=== PATIENT | female | born 1985 | race Caucasian/White ===

== ENCOUNTER 2017-12-08 16:33 | Inpatient (IN) | END 2017-12-15 20:15 | disposition home or self-care (01) | DRG 699 ==

== ENCOUNTER 2017-12-20 13:01 | Emergency (ER) | END 2017-12-20 13:36 | disposition home or self-care (01) ==

== ENCOUNTER 2018-01-03 12:10 | Emergency (ER) | END 2018-01-03 15:01 | disposition home or self-care (01) ==

== ENCOUNTER 2018-03-12 02:29 | Observation (INO) | END 2018-03-13 18:45 | disposition home or self-care (01) ==

== ENCOUNTER 2019-02-22 14:24 | Emergency (ER) | payer BC ==
[~2019-02-22] VITALS: Ht 162.6 cm; Wt 77.1 kg
[~2019-02-22 14:24] MED LIST: AMOX1TAB10 PO; PHEN-717 PO
[2019-02-22 14:33] VITALS: BP 113/55; PULSE 69; RESP 18; Ht 162.6 cm; Wt 77.1 kg
--- NOTE | 2019-02-22 15:16 | ERD ---
ER Documentation Chief Complaint Chief Complaint right flank pain x 1 week; hx of kidney stones HPI Patient is a 33 years old female presenting to the ED for right sided flank pain x 1 week with mild headache. Patient denies fever, chills, night sweats, dysuria, vaginal discharge, vaginal bleeding, diarrhea, constipation, hematochezia, emesis. Patient admits to taking OTC ibuprofen without resolution. Patient admits to mild on and off nausea. Patient admits to going to the PCP on 02/20/2019 and was advised that she might need surgery. Patient had a renal ultrasound done on 02/22/2019 and is currently waiting on the result. Patient reports that she was diagnosed with UTI by her PCP and was given antibiotic (Macrobid). Patient rates her pain 5/10 and admits to history of nephrolithiasis. ROS All systems reviewed and are negative except as per history of present illness. Medications Home Meds Active Scripts Phenazopyridine Hcl* (Phenazopyridine Hcl*) 200 Mg Tablet, 200 MG PO TID for 4 Days, #12 TAB Prov:KENDALL FELIX PA-C 02/22/19 Amoxicillin/Potassium Clav (Amox-Clav 875-125 mg Tablet) 875-125 mg Tab, 1 TAB PO BID for 10 Days, #20 TAB Prov:FRANCO WOMACK 03/13/18 Allergies Allergies: Coded Allergies: heparin (Verified Allergy, Mild, 12/13/17) Rash Uncoded Allergies: VANCO (Adverse Reaction, Severe, RED MAN SYNDROME FROM VANCO, 03/12/18) PMhx/Soc History of Surgery: Yes (right nephrostomy tube placement, tubal ligation) Anesthesia Reaction: No Hx Neurological Disorder: No Hx Respiratory Disorders: No Hx Cardiac Disorders: No Hx Psychiatric Problems: No Hx Miscellaneous Medical Probl: No Hx Alcohol Use: No Hx Substance Use: No Hx Tobacco Use: No FmHx Family History: No diabetes, No coronary disease, No other Physical Exam Vitals Vital Signs Date Temp Pulse Resp B/P (MAP) Pulse Ox O2 O2 Flow FiO2 Time Delivery Rate 02/22/19 98.1 69 18 113/55 98 14:33 (74) Physical Exam Const: No acute distress Head: Atraumatic Resp: Clear to auscultation bilaterally Cardio: Regular rate and rhythm, no murmurs Abd: Soft, non tender, non distended. Normal bowel sounds Back: No midline or flank tenderness. Right sided CVAT. Psych: Normal Mood and Affect Results 24 hrs Laboratory Tests Test 02/22/19 15:38 POC Beta HCG, Qualitative NEGATIVE Current Medications Medications Dose Sig/Vijaya Start Time Status Last (Trade) Ordered Route PRN Stop Time Admin Dose Reason Admin Ketorolac 30 mg ONCE STAT 02/22/19 DC 02/22/19 Tromethamine IM 15:18 02/22/19 15:26 (Toradol) 15:19 200 mg ONCE ONCE 02/22/19 DC 02/22/19 Phenazopyridi PO 15:30 02/22/19 15:26 ne HCl 15:31 (Pyridium) Procedures/MDM Patient was seen and evaluated for right-sided flank pain who has a current diagnosis of UTI and renal stones currently on Macrobid. Toradol and Pyridium administered in ED. No work-up required for today's visit as patient is restarted on antibiotic treatment for UTI, ready had a renal ultrasound done is and is currently waiting for results, patient is afebrile and vitals are stable. Patient is stable and ready for discharge. Follow-up with PCP. Patient will be discharged with Pyridium and was advised to continue taking Macrobid until completion. Patient was advised symptoms worsen to come back to ED within 24 hours for reevaluation. Departure Diagnosis: Primary Impression: Flank pain Condition: Stable Patient Instructions: Flank Pain, Uncertain Cause Referrals: [facility] Additional Instructions: Paciente aconseja volver a Departamento de urgencias inmediatamente para sntomas nuevos o que empeoran . Paciente aconseja posteriores con el PCP en 2-3 toney . Paciente verbaliza la comprehensin y est de acuerdo con el tratamiento y el curso de accin. Si el paciente no tiene ninguna de atencin primaria pueden seguir con [facility] [id number] [place] [address] [facility] + [address] [phone] KENDALL FELIX PA-C Feb 22, 2019 15:16
[2019-02-22] MEDS ORDERED: KETOROLAC 30 MG INJ IM STA (15:18)
[2019-02-22] MEDS ORDERED: PHENAZOPYRIDINE 100 MG TAB PO ONE (15:30)
== END 2019-02-22 16:14 | disposition home or self-care (01) ==
LOC: FTE 14:24
DX: R10.9 Unspecified abdominal pain (principal)
CPT/HCPCS: 81025; 96372; J1885; Z7502; Z7610